=== PATIENT | female | born 1990 | race African-American/Black ===

== ENCOUNTER 2018-01-07 19:44 | Emergency (ER) | payer OTHER ==
[2018-01-07] MEDS ORDERED: ASPIRIN 81 MG CHEWABLE TABLETS PO ONE (19:50)
--- NOTE | 2018-01-07 19:53 | PDOC ---
Rapid Medical Evaluation Chief Complaint: Chest Pain Time Seen by Provider: 01/07/18 19:47 Medical Evaluation: Allergies Allergy/AdvReac Type Severity Reaction Status Date / Time No Known Allergies Allergy Verified 03/28/12 21:26 01/07/18 19:48 c/o chest pain 3 times on and off today. reports dizziness, denies SOB, recent travel + smoker PE: patient alert o x3. nontender chest, breath sounds clear A: chest pain P: labs EKG chest xray patient to the ER for further management. 01/07/18 19:51 01/07/18 19:53 Discharge Disposition - Diagnosis Chest pain at rest - Referrals - Patient Instructions - Post Discharge Activity
[2018-01-07 19:54] VITALS: BP 140/85; PULSE 95; TEMP 98.1; BMI 43.9
[2018-01-07 20:31] LABS: BASO % 0.8 % (0-2.0); HEMATOCRIT 36.2 % (32.4-45.2); HEMOGLOBIN 11.8 GM/dL (10.7-15.3); MCH 26.5 pg (25.7-33.7); MCHC 32.6 g/dl (32.0-36.0); MEAN CELL VOLUME 81.2 fl (80-96); MEAN PLT VOLUME 8.1 fl (7.5-11.1); MONO % 8.8 % (3.8-10.2); NEUT % 60.4 % (42.8-82.8); PLATELET COUNT 525 K/MM3 (134-434); RBC 4.46 M/mm3 (3.60-5.2); RDW 15.8 % (11.6-15.6); WHITE BLOOD COUNT 9.6 K/mm3 (4.0-10.0)
[2018-01-07 20:46] LABS: INR 0.96 (0.83-1.09); PROTHROMBIN TIME (PATIENT) 10.9 SEC (9.7-13.0)
[2018-01-07 20:54] LABS: ANION GAP 12 (8-16); BILIRUBIN,TOTAL 0.3 mg/dL (0.2-1.0); BLOOD UREA NITROGEN 13 mg/dL (7-18); CHLORIDE 109 mmol/L (98-107); CO2 25 mmol/L (21-32); CREATININE 0.7 mg/dL (0.55-1.02); GLUCOSE,RANDOM 94 mg/dL (74-106); MAGNESIUM 2.1 mg/dL (1.8-2.4); POTASSIUM 4.1 mmol/L (3.5-5.1); SGOT/AST 14 U/L (15-37); SGPT/ALT 26 U/L (12-78); SODIUM 146 mmol/L (136-145); TOT PROT 7.4 g/dl (6.4-8.2)
[2018-01-07 20:57] LABS: ALK PHOS 77 U/L (45-117)
[2018-01-07] MEDS ORDERED: ASPIRIN 81 MG CHEWABLE TABLETS ONE (20:58)
--- NOTE | 2018-01-07 21:32 | PDOC ---
History of Present Illness - General History Source: Patient <Jim Rosario - Last Filed: 01/07/18 21:50> - General History Source: Patient Exam Limitations: No Limitations - History of Present Illness Initial Comments: 01/07/18 21:53 The patient is a 27 year old female, with a significant past medical history of , who presents to the emergency department with, chest pain. She reports 3 episodes of intermittent chest pain with associated left arm pain and dizziness. Her episodes occurred at 9AM, 1PM, and 5PM. She reports taken Naprosyn, with relief to her first and second episodes. She denies any recent sick contacts. She denies recent fevers, chills, or headache. She denies recent nausea, vomit, diarrhea or constipation. She denies recent dysuria, frequency, urgency or hematuria. She denies recent shortness of breath. Allergies: NKA Past surgical history: None reported. Social history:Smoker (4 cigarettes per day). Denies EtOH use and recreational drug use. <Katelyn Rosales - Last Filed: 01/07/18 22:03> - General Chief Complaint: Pain Stated Complaint: CHEST PAIN Time Seen by Provider: 01/07/18 19:47 Past History - Past Medical History COPD: No Other medical history: Pt denies - Immunization History Immunization Up to Date: Yes - Suicide/Smoking/Psychosocial Hx Smoking Status: Yes Smoking History: Current every day smoker Have you smoked in the past 12 months: Yes Number of Cigarettes Smoked Daily: 4 Information on smoking cessation initiated: No Hx Alcohol Use: No Drug/Substance Use Hx: No Substance Use Type: None <Kina Rosarioan - Last Filed: 01/07/18 21:50> <Katelyn Rosales - Last Filed: 01/07/18 22:03> - Past Medical History Allergies/Adverse Reactions: Allergies Allergy/AdvReac Type Severity Reaction Status Date / Time No Known Allergies Allergy Verified 01/07/18 19:51 Home Medications: Ambulatory Orders Iron 1 tab PO DAILY 06/01/11 Capsule 1 cap PO DAILY 06/01/11 Iron 1 tab PO DAILY #0 06/03/11 Capsule 1 cap PO DAILY #0 06/03/11 Naproxen [Naprosyn] 500 mg PO BID #30 tablet 01/07/18 Review of Systems - Review of Systems Able to Perform ROS?: Yes Comments:: 01/07/18 21:53 CONSTITUTIONAL: Absent: fever, no chills, no fatigue EYES: Absent: visual changes ENT: Absent: ear pain, no sore throat CARDIOVASCULAR: Present: Chest pain. Left arm pain. Absent: no palpitations RESPIRATORY: Absent: cough, no SOB GI: Absent: abdominal pain, no nausea, no vomiting, no constipation, no diarrhea GENITOURINARY: Absent: dysuria, no frequency, no hematuria MUSKULOSKELETAL: Absent: back pain, no arthralgia, no myalgia SKIN: Absent: rash NEURO: Present: Dizziness. Absent: headache All Other Systems: Reviewed and Negative <Katelyn Rosales - Last Filed: 01/07/18 22:03> *Physical Exam - Vital Signs Last Vital Signs Temp Pulse Resp BP Pulse Ox 98.1 F 95 H 18 140/85 100 01/07/18 19:51 01/07/18 19:51 01/07/18 19:51 01/07/18 19:51 01/07/18 19:51 <Jim Rosario - Last Filed: 01/07/18 21:50> - Vital Signs Last Vital Signs Temp Pulse Resp BP Pulse Ox 98.1 F 95 H 18 140/85 100 01/07/18 19:51 01/07/18 19:51 01/07/18 19:51 01/07/18 19:51 01/07/18 19:51 - Physical Exam Comments: 01/07/18 21:53 +GENERAL: Morbidly obese. Well developed, well nourished. Awake and alert. No acute distress. HEENT: Normocephalic, atraumatic. PERRLA, EOMI. No conjunctival pallor. Sclera are non- icteric. Moist mucous membranes. Oropharynx is clear. NECK: Supple. Full ROM. No JVD. Carotid pulses 2+ and symmetric, without bruits. No thyromegaly. No lymphadenopathy. CARDIOVASCULAR: Regular rate and rhythm. No murmurs, rubs, or gallops. Distal pulses are 2+ and symmetric. PULMONARY: No evidence of respiratory distress. Lungs clear to auscultation bilaterally. No wheezing, rales or rhonchi. ABDOMINAL: Soft. Non-tender. Non-distended. No rebound or guarding. No organomegaly. Normoactive bowel sounds. MUSCULOSKELETAL Normal range of motion at all joints. No bony deformities or tenderness. No CVA tenderness. EXTREMITIES: No cyanosis. No clubbing. No edema. No calf tenderness. SKIN: Warm and dry. Normal capillary refill. No rashes. No jaundice. NEUROLOGICAL: Alert, awake, appropriate. Cranial nerves 2-12 intact. No deficits to light touch and temperature in face, upper extremities and lower extremities. No motor deficits in the in face, upper extremities and lower extremities. Normoreflexic in the upper and lower extremities. Normal speech. Toes are down- going bilaterally. Gait is normal without ataxia. PSYCHIATRIC: Cooperative. Good eye contact. Appropriate mood and affect. <Katelyn Rosales - Last Filed: 01/07/18 22:03> Heart Score/ECG Review #1 01/07/18 22:03 EKG performed at: 07 Jan 2018 at 21:21:23 Vent Rate 87 bpm VT interval 154 ms QRS duration 72 ms QT/QTc 396/476 ms P-R-T axes 24 30 24 Normal sinus rhythm Normal ECG <Katelyn Rosales - Last Filed: 01/07/18 22:03> ED Treatment Course - LABORATORY CBC & Chemistry Diagram: 01/07/18 20:20 01/07/18 20:20 - ADDITIONAL ORDERS Additional order review: Laboratory Results 01/07/18 01/07/18 01/07/18 20:20 20:20 20:20 PT with INR INR D-Dimer 305 Sodium 146 H Potassium 4.1 Chloride 109 H Carbon Dioxide 25 Anion Gap 12 BUN 13 Creatinine 0.7 Creat Clearance w eGFR > 60 Random Glucose 94 Calcium 9.0 Magnesium 2.1 Total Bilirubin 0.3 AST 14 L ALT 26 Alkaline Phosphatase 77 Creatine Kinase 213 H Troponin I < 0.02 Total Protein 7.4 Albumin 4.0 Serum , Qual Negative 01/07/18 20:20 PT with INR 10.90 INR 0.96 D-Dimer Sodium Potassium Chloride Carbon Dioxide Anion Gap BUN Creatinine Creat Clearance w eGFR Random Glucose Calcium Magnesium Total Bilirubin AST ALT Alkaline Phosphatase Creatine Kinase Troponin I Total Protein Albumin Serum , Qual 01/07/18 20:20 RBC 4.46 MCV 81.2 MCHC 32.6 RDW 15.8 H MPV 8.1 Neutrophils % 60.4 D Lymphocytes % 27.0 D Monocytes % 8.8 Eosinophils % 3.0 Basophils % 0.8 D - Medications Given in the ED: ED Medications Discontinued Medications Generic Name Dose Route Start Last Admin Trade Name Valerioq PRN Reason Stop Dose Admin Aspirin 162 mg 01/07/18 19:50 01/07/18 20:15 Asa - PO 01/07/18 19:51 162 mg ONCE ONE Administration <Jim Rosario - Last Filed: 01/07/18 21:50> - LABORATORY CBC & Chemistry Diagram: 01/07/18 20:20 01/07/18 20:20 - ADDITIONAL ORDERS Additional order review: Laboratory Results 01/07/18 01/07/18 01/07/18 20:20 20:20 20:20 PT with INR INR D-Dimer 305 Sodium 146 H Potassium 4.1 Chloride 109 H Carbon Dioxide 25 Anion Gap 12 BUN 13 Creatinine 0.7 Creat Clearance w eGFR > 60 Random Glucose 94 Calcium 9.0 Magnesium 2.1 Total Bilirubin 0.3 AST 14 L ALT 26 Alkaline Phosphatase 77 Creatine Kinase 213 H Creatine Kinase Index 0.8 CK-MB (CK-2) 1.75 Troponin I < 0.02 Total Protein 7.4 Albumin 4.0 Serum , Qual Negative 01/07/18 20:20 PT with INR 10.90 INR 0.96 D-Dimer Sodium Potassium Chloride Carbon Dioxide Anion Gap BUN Creatinine Creat Clearance w eGFR Random Glucose Calcium Magnesium Total Bilirubin AST ALT Alkaline Phosphatase Creatine Kinase Creatine Kinase Index CK-MB (CK-2) Troponin I Total Protein Albumin Serum , Qual 01/07/18 20:20 RBC 4.46 MCV 81.2 MCHC 32.6 RDW 15.8 H MPV 8.1 Neutrophils % 60.4 D Lymphocytes % 27.0 D Monocytes % 8.8 Eosinophils % 3.0 Basophils % 0.8 D - Medications Given in the ED: ED Medications Discontinued Medications Generic Name Dose Route Start Last Admin Trade Name Valerioq PRN Reason Stop Dose Admin Aspirin 162 mg 01/07/18 19:50 01/07/18 20:15 Asa - PO 01/07/18 19:51 162 mg ONCE ONE Administration <Katelyn Rosales - Last Filed: 01/07/18 22:03> Medical Decision Making - Medical Decision Making 01/07/18 21:44 Dr. Rosario: The scribe's documentation has been prepared under my direction and personally reviewed by me in its entirery. I confirm that the note above accurately reflects all work, treatment, procedures, and medical decision making performed by me. <Jim Rosario - Last Filed: 01/07/18 21:50> *DC/Admit/Observation/Transfer - Discharge Dispostion Decision to Admit order: No <Jim Rosario - Last Filed: 01/07/18 21:50> - Attestations Scribe Attestion: 01/07/18 21:54 Documentation prepared by Katelyn Rosales, acting as medical device sales for Jim Rosario DO. <Katelyn Rosales - Last Filed: 01/07/18 22:03> Diagnosis at time of Disposition: Chest pain at rest - Discharge Dispostion Disposition: HOME Condition at time of disposition: Stable - Prescriptions Prescriptions: Naproxen [Naprosyn] 500 mg PO BID #30 tablet - Referrals Referrals: Gary Anguiano MD [Staff Physician] - Tomas Magallanes MD [Staff Physician] - - Patient Instructions Printed Discharge Instructions: DI for Chest Pain Additional Instructions: please follow-up with the doctor referred in the ER. Take medication as directed. Return if any problems - Post Discharge Activity Forms/Work/School Notes: Back to Work
--- NOTE | 2018-01-08 15:46 | EKG ---
Test Reason : Blood Pressure : / mmHG Vent. Rate : 087 BPM Atrial Rate : 087 BPM P-R Int : 154 ms QRS Dur : 072 ms QT Int : 396 ms P-R-T Axes : 024 030 024 degrees QTc Int : 476 ms NORMAL SINUS RHYTHM NORMAL ECG NO PREVIOUS ECGS AVAILABLE Confirmed by HOMA FRAGA MD ([id number]) on 01/08/2018 3:46:09 PM Referred By: Confirmed By:HOMA FRAGA MD
== END 2018-01-07 22:15 | disposition home or self-care (01) ==
LOC: JER 19:44
DX: R07.9 Chest pain, unspecified (principal); F17.210 Nicotine dependence, cigarettes, uncomplicated
CPT/HCPCS: 36415; 71046-TC-FY; 80053; 82550; 82553; 83735; 84484; 84703; 85025; 85379; 85610; 93005; 93010; 99282-25

== ENCOUNTER 2018-05-16 11:59 | Emergency (ER) | payer OTHER ==
[2018-05-16 12:21] VITALS: BP 126/75; PULSE 93; TEMP 98.7; BMI 47.9
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
[2018-05-16] MEDS ORDERED: IBUPROFEN 600 MG TABLET (FP) PO ONE (13:30)
== END 2018-05-16 13:37 | disposition home or self-care (01) ==
LOC: JER 11:59
DX: L73.2 Hidradenitis suppurativa (principal); M25.561 Pain in right knee; E66.01 Morbid (severe) obesity due to excess calories; Z68.42 Body mass index [BMI] 45.0-49.9, adult; F17.210 Nicotine dependence, cigarettes, uncomplicated
CPT/HCPCS: 73562-TC-RT-FY; 84703; 99282-25

== ENCOUNTER 2019-07-01 15:40 | Emergency (ER) | payer OTHER ==
[2019-07-01] MEDS ORDERED: SODIUM CHLORIDE 1,000 ML IV STA (16:02)
[2019-07-01 16:03] VITALS: BMI 54.8
--- NOTE | 2019-07-01 16:03 | PDOC ---
Rapid Medical Evaluation Time Seen by Provider: 07/01/19 15:59 Medical Evaluation: Allergies Allergy/AdvReac Type Severity Reaction Status Date / Time No Known Allergies Allergy Verified 05/16/18 12:15 07/01/19 15:59 CC: and bleeding x 6 days. Pt is a 28 y/o female who presents to the ED with vaginal bleeding in . She states she is intermittently passing clots. She admits to having abdominal pain. LMP 2018. Brief exam: diffuse lower abdominal tenderness to palpation Orders: labs, US, fluids To ED for further evaluation Discharge Disposition - Diagnosis Vaginal bleeding - Referrals - Patient Instructions - Post Discharge Activity
[2019-07-01 16:33] LABS: BASO % 0.5 % (0-2.0); EOS % 1.2 % (0-4.5); HEMATOCRIT 35.3 % (32.4-45.2); HEMOGLOBIN 11.6 GM/dL (10.7-15.3); LYMPH % 25.9 % (8-40); MCH 27.1 pg (25.7-33.7); MCHC 32.8 g/dl (32.0-36.0); MEAN CELL VOLUME 82.6 fl (80-96); MONO % 7.9 % (3.8-10.2); NEUT % 64.5 % (42.8-82.8); PLATELET COUNT 458 K/MM3 (134-434); RBC 4.28 M/mm3 (3.60-5.2); RDW 15.5 % (11.6-15.6); WHITE BLOOD COUNT 9.7 K/mm3 (4.0-10.0)
[2019-07-01 16:42] LABS: EPI CELLS 8.4 /HPF (0-5/HPF); HYALINE CASTS 7 /lpf (0-8); PH,URINE 5.5 (5.0-8.0); URINE APPEARANCE CLEAR; URINE BACTERIA 69.2 /hpf (NEGATIVE); URINE BILIRUBIN NEGATIVE (NEGATIVE); URINE COLOR DK YELLOW; URINE GLUCOSE (UA) NEGATIVE (NEGATIVE); URINE KETONE TRACE (NEGATIVE); URINE LEUK ESTERASE NEGATIVE (NEGATIVE); URINE NITRITE NEGATIVE (NEGATIVE); URINE PROTEIN TRACE (NEGATIVE); URINE RBC 5 /hpf (0-4); URINE WBC 4 /hpf (0-5)
[2019-07-01 17:20] LABS: ALBUMIN 3.7 g/dl (3.4-5.0); BILIRUBIN,TOTAL 0.3 mg/dL (0.2-1); BLOOD UREA NITROGEN 7.2 mg/dL (7-18); CALCIUM 9.1 mg/dL (8.5-10.1); CREATININE 0.8 mg/dL (0.55-1.3); POTASSIUM 3.7 mmol/L (3.5-5.1); TOT PROT 7.3 g/dl (6.4-8.2)
--- NOTE | 2019-07-01 18:23 | PDOC ---
History of Present Illness - General Chief Complaint: Vaginal Bleeding Stated Complaint: VAGINAL BLEEDING Time Seen by Provider: 07/01/19 15:59 History Source: Patient, Old Records Exam Limitations: No Limitations - History of Present Illness Initial Comments: 07/01/19 18:20 HISTORY OF PRESENT ILLNESS: 28-year-old otherwise healthy woman who is 4 para 1 with a last menstrual period of 05/23/2019 presents emergency department for evaluation of vaginal spotting for the past 6 days. Patient reports she is 5-6 pads over the first 2 days but is only had some spotting since then. Bleeding is accompanied by some lower abdominal pain which radiates to her lower back. Pain is intermittent and cramping and is currently 3/10 with intermittently as high as 8/10. Patient reports she has had 2+ home test on Friday. She denies any nausea, vomiting, dysuria, hematuria, vaginal discharge, flank pain, constipation or diarrhea. No recent travel or sick contacts. PAST MEDICAL HISTORY: 4 para 1 SURGICAL HISTORY: LEEP ALLERGIES: No known drug allergies REVIEW OF SYSTEMS General/Constitutional: Denies fever or chills. Denies weakness, weight change. HEENT: Denies change in vision. Denies ear pain or discharge. Denies sore throat. Cardiovascular: Denies chest pain or shortness of breath. Respiratory: Denies cough, wheezing, or hemoptysis. Gastrointestinal: See HPI Genitourinary: See HPI Musculoskeletal: Denies joint or muscle swelling or pain. Denies neck or back pain. Skin and breasts: Denies rash or easy bruising. Neurologic: Denies headache, vertigo, loss of consciousness, or loss of sensation. Psychiatric: Denies depression or anxiety. Endocrine: Denies increased thirst. Denies abnormal weight change. Hematologic/Lymphatic: Denies anemia, easy bleeding, or history of blood clots. Allergic/Immunologic: Denies hives or skin allergy. Denies latex allergy. PHYSICAL EXAM General Appearance: Well-appearing, appropriately dressed. No apparent distress , no intoxication. HEENT: EOMI, PERRLA, normal ENT inspection, normal voice, TMs normal, pharynx normal. No conjunctival pallor. No photophobia, scleral icterus. Neck: Supple. Trachea midline. No tenderness, rigidity, carotid bruit, stridor , lymphadenopathy, or thyromegaly. Respiratory/Chest: Lungs CTAB. No shortness of breath, chest tenderness, respiratory distress, accessory muscle use. No crackles, rales, rhonchi, stridor , wheezing, dullness Cardiovascular: RRR. S1, S2. No JVD, murmur, bradycardia, tachycardia. Vascular Pulses: Dorsalis-Pedis (R): 2+, Dorsalis-Pedis (L): 2+ Gastrointestinal/Abdominal: Normal bowel sounds. Abdomen soft, non-distended. No organomegaly, pulsatile mass, guarding, hernia, hepatomegaly, splenomegaly. Lower abdominal tenderness and guarding present. Lymphatic: No adenopathy, tenderness. Musculoskeletal/Extremities: Normal inspection. FROM of all extremities, normal capillary refill. Pelvis Stable. No CVA tenderness. No tenderness to extremities, pedal edema, swelling, erythema or deformity. Integumentary: Appropriate color, dry, warm. No cyanosis, erythema, jaundice or rash Neurologic: production internship II-XII intact. Fully oriented, alert. Appropriate mood/affect. Motor strength 5/5. No appreciable EOM palsy, facial droop or sensory deficit. Past History - Past Medical History Allergies/Adverse Reactions: Allergies Allergy/AdvReac Type Severity Reaction Status Date / Time No Known Allergies Allergy Verified 07/01/19 15:59 Home Medications: Ambulatory Orders NK [No Known Home Medication] 05/16/18 COPD: No - Immunization History Immunization Up to Date: Yes - Psycho Social/Smoking Cessation Hx Smoking Status: Yes Smoking History: Never smoked Have you smoked in the past 12 months: Yes Number of Cigarettes Smoked Daily: 4 Hx Alcohol Use: No Drug/Substance Use Hx: No Substance Use Type: None *Physical Exam - Vital Signs Last Vital Signs Temp Pulse Resp BP Pulse Ox 98.4 F 103 H 18 162/95 99 07/01/19 16:01 07/01/19 16:01 07/01/19 16:01 07/01/19 16:07/01/19 16:01 - Physical Exam Female Pelvic Exam: positive: normal external exam, cervical os closed, normal adnexa. negative: CMT, discharge, adnexal tenderness, vaginal bleeding ED Treatment Course - LABORATORY CBC & Chemistry Diagram: 07/01/19 16:16 07/01/19 16:16 - ADDITIONAL ORDERS Additional order review: Laboratory Results 07/01/19 07/01/1920 16:16 16:16 16:16 Sodium 140 Potassium 3.7 Chloride 108 H Carbon Dioxide 23 Anion Gap 8 BUN 7.2 Creatinine 0.8 Est GFR (CKD-EPI)AfAm 117.93 Est GFR (CKD-EPI)NonAf 101.75 Random Glucose 101 Calcium 9.1 Total Bilirubin 0.3 AST 32 ALT 44 Alkaline Phosphatase 76 Total Protein 7.3 Albumin 3.7 Beta HCG, Quant 1421.5 Urine Color Dk yellow Urine Appearance Clear Urine pH 5.5 Ur Specific [place] 1.029 Urine Protein Trace Urine Glucose (UA) Negative Urine Ketones Trace H Urine Blood 2+ H Urine Nitrite Negative Urine Bilirubin Negative Urine Urobilinogen 1.0 Ur Leukocyte Esterase Negative Urine WBC (Auto) 4 Urine RBC (Auto) 5 Urine Casts (Auto) 7 U Epithel Cells (Auto) 8.4 Urine Bacteria (Auto) 69.2 Blood Type A POSITIVE Antibody Screen Negative 07/01/19 16:16 RBC 4.28 MCV 82.6 MCHC 32.8 RDW 15.5 MPV 8.0 Neutrophils % 64.5 Lymphocytes % 25.9 Monocytes % 7.9 Eosinophils % 1.2 Basophils % 0.5 - Medications Given in the ED: ED Medications Discontinued Medications Generic Name Dose Route Start Last Admin Trade Name Freq PRN Reason Stop Dose Admin Sodium Chloride 1,000 mls @ 1,000 mls/hr 07/01/19 16:02 07/01/19 17:06 Normal Saline - IV 07/01/19 17:01 1,000 mls/hr ASDIR STA Administration Medical Decision Making - Medical Decision Making 07/01/19 18:22 A/P: 28-year-old woman with lower abdominal pain and vaginal bleeding in early Differential diagnosis includes but is not limited to-ectopic , threatened , vaginal bleeding in early , infection Labs per E Ultrasound per [facility] Reassess 07/01/19 19:43 Ultrasound is read by Dr. So: No intrauterine gestation or gestational sac is identified-? Early , ectopic or recent miscarriage. 1.7 cm soft tissue focus is seen within the endometrial canal possibly representing a protruding submucosal leiomyoma or polypoid lesion. Nonemergent MRI may be performed. 3 cm intramural lesion is seen within the uterine body ventrally suggestive of a leiomyoma. No gross adnexal pathology is identified. There is no free intraperitoneal fluid within the visualized lower pelvis. 1.7 cm right ovarian cyst is noted. The left ovary appears unremarkable. No Doppler evidence of ovarian torsion, sensitivity 70%. 07/01/19 19:45 Laboratory Tests 07/01/19 07/01/19 07/01/19 16:16 16:16 16:16 WBC 9.7 RBC 4.28 Hgb 11.6 Hct 35.3 MCV 82.6 MCH 27.1 MCHC 32.8 RDW 15.5 Plt Count 458 H MPV 8.0 Absolute Neuts (auto) 6.3 Neutrophils % 64.5 Lymphocytes % 25.9 Monocytes % 7.9 Eosinophils % 1.2 Basophils % 0.5 Nucleated RBC % 0 Sodium Potassium Chloride Carbon Dioxide Anion Gap BUN Creatinine Est GFR (CKD-EPI)AfAm Est GFR (CKD-EPI)NonAf Random Glucose Calcium Total Bilirubin AST ALT Alkaline Phosphatase Total Protein Albumin Beta HCG, Quant Urine Color Dk yellow Urine Appearance Clear Urine pH 5.5 Ur Specific [place] 1.029 Urine Protein Trace Urine Glucose (UA) Negative Urine Ketones Trace H Urine Blood 2+ H Urine Nitrite Negative Urine Bilirubin Negative Urine Urobilinogen 1.0 Ur Leukocyte Esterase Negative Urine WBC (Auto) 4 Urine RBC (Auto) 5 Urine Casts (Auto) 7 U Epithel Cells (Auto) 8.4 Urine Bacteria (Auto) 69.2 Blood Type A POSITIVE Antibody Screen Negative 07/01/19 16:16 WBC RBC Hgb Hct MCV MCH MCHC RDW Plt Count MPV Absolute Neuts (auto) Neutrophils % Lymphocytes % Monocytes % Eosinophils % Basophils % Nucleated RBC % Sodium 140 Potassium 3.7 Chloride 108 H Carbon Dioxide 23 Anion Gap 8 BUN 7.2 Creatinine 0.8 Est GFR (CKD-EPI)AfAm 117.93 Est GFR (CKD-EPI)NonAf 101.75 Random Glucose 101 Calcium 9.1 Total Bilirubin 0.3 AST 32 ALT 44 Alkaline Phosphatase 76 Total Protein 7.3 Albumin 3.7 Beta HCG, Quant 1421.5 Urine Color Urine Appearance Urine pH Ur Specific [place] Urine Protein Urine Glucose (UA) Urine Ketones Urine Blood Urine Nitrite Urine Bilirubin Urine Urobilinogen Ur Leukocyte Esterase Urine WBC (Auto) Urine RBC (Auto) Urine Casts (Auto) U Epithel Cells (Auto) Urine Bacteria (Auto) Blood Type Antibody Screen Blood type is a positive. Beta-hCG 1421. Urinalysis not suggestive of infection. As cervical loss is closed there is no pooling of blood if it is safe to discharge home. Patient has been instructed to return to the emergency department in 2 days for repeat beta testing and ultrasound. I discussed the physical exam findings, ancillary test results and final diagnoses with the patient. I answered all of the patient's questions. The patient was satisfied with the care received and felt comfortable with the discharge plan and treatment plan. The patient will call their primary care physician within 24 hours to arrange follow-up and will return to the Emergency Department with any new, persistent or worsening symptoms. Discharge - Discharge Information Problems reviewed: Yes Clinical Impression/Diagnosis: Vaginal bleeding Condition: Stable Disposition: HOME - Admission No - Follow up/Referral Referrals: Sweta Funes MD [Primary Care Provider] - - Patient Discharge Instructions Additional Instructions: Take your vitamins. Keep well-hydrated. Avoid tobacco and alcohol as well as illegal drugs. Make an appointment with your [facility] [facility] [facility] for reevaluation. Return to the emergency department in 2 days for repeat blood and's ultrasound. Return to the emergency department immediately for severe pain, vaginal bleeding that requires more than 2 pads per hour or for any other symptoms. Thank you very much for choosing us to provide your emergent health care needs. - Post Discharge Activity
[2019-07-01 21:48] VITALS: BP 126/78; PULSE 78; TEMP 98.5
== END 2019-07-01 20:45 | disposition home or self-care (01) ==
LOC: JER 15:40
PROC: 3E0337Z Introduction of Electrolytic and Water Balance Substance into Peripheral Vein, Percutaneous Approach (ICD-10-PCS; principal; 2019-07-01)
DX: O26.891 Other specified pregnancy related conditions, first trimester (principal); O20.8 Other hemorrhage in early pregnancy; O34.11 Maternal care for benign tumor of corpus uteri, first trimester; D25.9 Leiomyoma of uterus, unspecified; O34.80 Maternal care for other abnormalities of pelvic organs, unspecified trimester; N83.201 Unspecified ovarian cyst, right side; Z3A.01 Less than 8 weeks gestation of pregnancy
CPT/HCPCS: 36415; 76817-TC; 80053; 81003; 84702; 85025; 86850; 86900; 86901; 99283-25; J7030

== ENCOUNTER 2019-07-04 17:28 | Emergency (ER) | payer OTHER ==
[2019-07-04 17:34] VITALS: BP 161/95; PULSE 101; TEMP 98.7; BMI 55.1
--- NOTE | 2019-07-04 17:42 | PDOC ---
History of Present Illness - General Chief Complaint[place] [facility] [place] Complaint: TEST Time Seen by Provider: 07/04/19 17:36 History Source: Patient - History of Present Illness Timing/Duration: reports: intermittent Past History - Past Medical History Allergies/Adverse Reactions: Allergies Allergy/AdvReac Type Severity Reaction Status Date / Time No Known Allergies Allergy Verified 07/04/19 17:34 Home Medications: Ambulatory Orders NK [No Known Home Medication] 05/16/18 COPD: No Other medical history: back problems - Reproductive History (#): 4 Para: 1 Spontaneous : 3 - Immunization History Immunization Up to Date: Yes - Psycho Social/Smoking Cessation Hx Smoking Status: Yes Smoking History: Current every day smoker Have you smoked in the past 12 months: Yes Number of Cigarettes Smoked Daily: 4 Information on smoking cessation initiated: No Hx Alcohol Use: No Drug/Substance Use Hx: No Substance Use Type: None Review of Systems - Review of Systems Constitutional: No: Chills, Fever ABD/GI: No: Nausea, Vomiting, Abdominal cramping : No: Dysuria, Discharge, Flank Pain, Hematuria *Physical Exam - Vital Signs Last Vital Signs Temp Pulse Resp BP Pulse Ox 98.7 F 101 H 18 161/95 100 07/04/19 17:30 07/04/19 17:30 07/04/19 17:30 07/04/19 17:30 07/04/19 17:30 - Physical Exam General Appearance: Yes: Appropriately Dressed. No: Apparent Distress HEENT: positive: Normal Voice Neck: positive: Supple Respiratory/Chest: negative: Respiratory Distress Gastrointestinal/Abdominal: positive: Soft. negative: Tender Integumentary: positive: Dry, Warm Neurologic: positive: Fully Oriented, Alert, Normal Mood/Affect Medical Decision Making - Medical Decision Making 07/04/19 17:39 28 yo F, (s/p 2 spon ABs), LMP 05/23/19, here for repeat beta-hCG. Was seen in ER 4 days ago for vaginal bleeding. Os found to be closed w/ no pooling of blood in vault on prior pelvic exam per records. Beta was 1421 with no evidence of on ultrasound. No evidence of UTI on UA and Rh+. Bleeding is intermittent and mild per pt. No abdominal pain, dysuria, nausea, vomiting, fever or chills see exam 1st trimester bleed w/ beta>1k and no e/o preg on initial US 4 days ago in ED, here for rpt assessment Intermittent mild vag bleed continues, no abd pain, n/v Well foreign and stable w/ benign abd -rpt beta and US 07/04/19 20:39 Beta 671 today, decreased from more than half compared to prior visit. Repeat ultrasound today redemonstrates possible endometrial polyp versus fibroids. Also seen is anterior uterine myoma and nabothian cyst. Results discussed with patient was told findings more consistent with spontaneous AB in progress. Told to follow-up follow-up with [facility]ER after today. Reasons to return to ER discussed with patient Discharge - Discharge Information Problems reviewed: Yes Clinical Impression/Diagnosis: Spontaneous Condition: Stable Disposition: HOME - Follow up/Referral Referrals: Michael Funes [Primary Care Provider] - - Patient Discharge Instructions Patient Printed Discharge Instructions: DI for Miscarriage Additional Instructions: Data is 671 today, compared to over 1400 on your prior visit Your ultrasound today shows no evidence of . There is a possible polyp versus fibroid in your uterus. After today you will need to follow-up with your OB to trend beta. If you develop abdominal pain or worsening of symptoms, return to the ER - Post Discharge Activity
== END 2019-07-04 20:42 | disposition home or self-care (01) ==
LOC: JERFT 17:28
DX: O26.891 Other specified pregnancy related conditions, first trimester (principal); O03.9 Complete or unspecified spontaneous abortion without complication; Z3A.01 Less than 8 weeks gestation of pregnancy; F17.210 Nicotine dependence, cigarettes, uncomplicated
CPT/HCPCS: 36415; 76817-TC; 84702; 99281-25

== ENCOUNTER 2023-03-02 08:13 | Inpatient (IN) | payer OTHER ==
[2023-03-02 08:36] VITALS: BMI 58.5
[2023-03-02 09:26] LABS: VENOUS BASE EXCESS -2.9 mmol/L (-2-2); VENOUS O2 SATURATION 53.5 % (70-80); VENOUS PCO2 38.9 mmHg (38-52)
[2023-03-02 09:37] LABS: POTASSIUM 3.9 mmol/L (3.5-5.1)
[2023-03-02 09:40] LABS: ALBUMIN 3.6 g/dl (3.4-5.0); CALCIUM 8.2 mg/dL (8.5-10.1); MAGNESIUM 1.9 mg/dL (1.8-2.4)
[2023-03-02 09:43] LABS: CREATININE 0.6 mg/dL (0.55-1.3)
[2023-03-02 09:45] LABS: BILIRUBIN,TOTAL 1.8 mg/dL (0.2-1); TOT PROT 6.7 g/dl (6.4-8.2)
[2023-03-02 09:48] LABS: N-TERMINAL BNP 164.4 pg/ml (5-125)
[2023-03-02 09:52] LABS: INR 1.19 (0.83-1.09); PROTHROMBIN TIME (PATIENT) 13.8 SEC (9.7-13.0)
[2023-03-02 09:55] LABS: ACTIVATED PTT 23.5 SECONDS (25.2-36.5)
[2023-03-02 10:05] LABS: HEMATOCRIT 18.7 % (32.4-45.2); MCH 34.3 pg (25.7-33.7); MCHC 32.1 g/dl (32.0-36.0); MEAN CELL VOLUME 106.7 fl (80-96); MEAN PLT VOLUME 6.6 fl (7.5-11.1); PLATELET COUNT 380 10^3/uL (134-434); RBC 1.75 M/mm3 (3.60-5.2); RDW 20.2 % (11.6-15.6); WHITE BLOOD COUNT 18.9 K/mm3 (4.0-10.0)
[2023-03-02 10:36] LABS: ANISOCYTOSIS 3+; CORRECTED WBC 15.37 K/mm3; MACROCYTOSIS 0; TARGET CELLS 2+
[2023-03-02 11:07] LABS: EPI CELLS >36 /uL (0-25.1); HYALINE CASTS 0 /uL (0-3.1); PH,URINE 5.5 (5.0-8.0); URINE APPEARANCE CLEAR; URINE BACTERIA 1081 /uL (0-1359); URINE BILIRUBIN NEGATIVE (NEGATIVE); URINE COLOR ORANGE; URINE GLUCOSE (UA) NEGATIVE (NEGATIVE); URINE KETONE NEGATIVE (NEGATIVE); URINE LEUK ESTERASE NEGATIVE (NEGATIVE); URINE NITRITE NEGATIVE (NEGATIVE); URINE PROTEIN NEGATIVE (NEGATIVE); URINE RBC 6 /uL (0-23.9); URINE UROBILINOGEN 0.2 mg/dL (0.2-1.0); URINE WBC 14 /uL (0-25.8)
[2023-03-02] MEDS ORDERED: ACETAMINOPHEN INJECTION 100 ML IVPB ONE (13:08)
[2023-03-02] MEDS ORDERED: ACETAMINOPHEN 1000 MG/100 ML BAG IVPB ONE (13:11)
[2023-03-03 12:27] LABS: POTASSIUM 3.9 mmol/L (3.5-5.1)
[2023-03-03 12:31] LABS: CALCIUM 8.5 mg/dL (8.5-10.1)
[2023-03-03 12:32] LABS: BLOOD UREA NITROGEN 7.7 mg/dL (7-18)
[2023-03-03 12:33] LABS: BILIRUBIN,DIRECT 0.5 mg/dL (0.0-0.2)
[2023-03-03 12:35] LABS: CREATININE 0.6 mg/dL (0.55-1.3)
[2023-03-03 12:36] LABS: HEMATOCRIT 24.5 % (32.4-45.2); HEMOGLOBIN 8.2 GM/dL (10.7-15.3); MCH 33.1 pg (25.7-33.7); MCHC 33.5 g/dl (32.0-36.0); MEAN CELL VOLUME 98.9 fl (80-96); MEAN PLT VOLUME 6.6 fl (7.5-11.1); PLATELET COUNT 326 10^3/uL (134-434); RBC 2.47 M/mm3 (3.60-5.2)
[2023-03-03 12:37] LABS: WHITE BLOOD COUNT 18.1 K/mm3 (4.0-10.0)
[2023-03-03 12:55] LABS: ANISOCYTOSIS 2+; CORRECTED WBC 13.82 K/mm3; MACROCYTOSIS 1+; OVALOCYTE 1+
[2023-03-03] MEDS: methylPREDNISolone NA SUCC 125 MG/2 ML VIAL IVPUSH SCH (17:58)
[2023-03-04 08:07] LABS: CMV IgM < 30.0 AU/mL (0.0-29.9)
[2023-03-04] MEDS: methylPREDNISolone NA SUCC 125 MG/2 ML VIAL IVPUSH SCH (09:51)
[2023-03-04 10:01] LABS: HEMATOCRIT 24.9 % (32.4-45.2); HEMOGLOBIN 8.4 GM/dL (10.7-15.3); MCH 33.7 pg (25.7-33.7); MCHC 33.9 g/dl (32.0-36.0); MEAN CELL VOLUME 99.5 fl (80-96); MEAN PLT VOLUME 6.6 fl (7.5-11.1); PLATELET COUNT 331 10^3/uL (134-434)
[2023-03-04 10:06] LABS: WHITE BLOOD COUNT 20.2 K/mm3 (4.0-10.0)
[2023-03-04 11:21] LABS: POTASSIUM 3.8 mmol/L (3.5-5.1)
[2023-03-04 14:23] LABS: CALCIUM 8.7 mg/dL (8.5-10.1)
[2023-03-04 14:24] LABS: BLOOD UREA NITROGEN 8.2 mg/dL (7-18); MAGNESIUM 2.3 mg/dL (1.8-2.4)
[2023-03-04 14:25] LABS: ALBUMIN 3.8 g/dl (3.4-5.0); CREATININE 0.6 mg/dL (0.55-1.3)
[2023-03-04 14:26] LABS: PHOSPHOROUS 2.3 mg/dL (2.5-4.9)
[2023-03-04 14:28] LABS: TOT PROT 7.3 g/dl (6.4-8.2)
[2023-03-04 17:08] LABS: PARV B19 IGG 0.5 index (0.0-0.8); PARV B19 IGM 0.2 index (0.0-0.8)
[2023-03-05 10:20] LABS: HEMOGLOBIN 8.6 GM/dL (10.7-15.3); MCH 34.3 pg (25.7-33.7); MCHC 33.2 g/dl (32.0-36.0); MEAN CELL VOLUME 103.1 fl (80-96); MEAN PLT VOLUME 6.8 fl (7.5-11.1); PLATELET COUNT 323 10^3/uL (134-434); RBC 2.52 M/mm3 (3.60-5.2); RDW 27.1 % (11.6-15.6); RETICULOCYTES 18.06 % (0.5-1.5); WHITE BLOOD COUNT 23.6 K/mm3 (4.0-10.0)
[2023-03-05 10:41] LABS: POTASSIUM 3.1 mmol/L (3.5-5.1)
[2023-03-05 10:58] LABS: ALBUMIN 3.6 g/dl (3.4-5.0); BLOOD UREA NITROGEN 11.6 mg/dL (7-18); MAGNESIUM 2.1 mg/dL (1.8-2.4)
[2023-03-05 11:01] LABS: CALCIUM 8.6 mg/dL (8.5-10.1); CREATININE 0.6 mg/dL (0.55-1.3); PHOSPHOROUS 2.6 mg/dL (2.5-4.9)
[2023-03-05 11:02] LABS: BILIRUBIN,TOTAL 1.9 mg/dL (0.2-1)
[2023-03-05] MEDS ORDERED: POTASSIUM CHLORIDE ORAL LIQUID 20 MEQ/15 ML PO ONE (13:27)
[2023-03-05] MEDS ORDERED: POTASSIUM CHLORIDE TABS 20 MEQ TABLET.ER (FP) PO ONE (13:28)
[2023-03-05] MEDS: POLYETHYLENE GLYCOL (HEALTHYLAX) 3350 17 GM PACKET PO SCH (18:51)
[2023-03-06] MEDS ORDERED: ACETAMINOPHEN 1000 MG/100 ML BAG IVPB ONE (04:45)
[2023-03-06] MEDS ORDERED: ACETAMINOPHEN 325 MG TABLET (FP) PO ONE (04:48)
[2023-03-06] MEDS: POLYETHYLENE GLYCOL (HEALTHYLAX) 3350 17 GM PACKET PO SCH (09:11)
[2023-03-06 10:49] LABS: HEMATOCRIT 23.4 % (32.4-45.2); HEMOGLOBIN 8.1 GM/dL (10.7-15.3); MCH 34.9 pg (25.7-33.7); MCHC 34.5 g/dl (32.0-36.0); MEAN CELL VOLUME 101.3 fl (80-96); MEAN PLT VOLUME 6.6 fl (7.5-11.1); PLATELET COUNT 293 10^3/uL (134-434); RBC 2.31 M/mm3 (3.60-5.2); RDW 25.5 % (11.6-15.6); RETICULOCYTES 17.69 % (0.5-1.5); WHITE BLOOD COUNT 17.5 K/mm3 (4.0-10.0)
[2023-03-06 11:07] LABS: POTASSIUM 3.9 mmol/L (3.5-5.1)
[2023-03-06 11:13] LABS: ALBUMIN 3.5 g/dl (3.4-5.0); BLOOD UREA NITROGEN 11.1 mg/dL (7-18); MAGNESIUM 2.1 mg/dL (1.8-2.4)
[2023-03-06 11:15] LABS: CREATININE 0.6 mg/dL (0.55-1.3)
[2023-03-06 11:18] LABS: BILIRUBIN,TOTAL 2.8 mg/dL (0.2-1); TOT PROT 6.6 g/dl (6.4-8.2)
[2023-03-06 11:29] LABS: BILIRUBIN,DIRECT 0.6 mg/dL (0.0-0.2)
[2023-03-06] MEDS ORDERED: ACETAMINOPHEN 500 MG TABLET (FP) PO ONE (15:57)
[2023-03-06] MEDS: ACETAMINOPHEN 500 MG TABLET (FP) PO PRN (23:39)
[2023-03-07] MEDS: POLYETHYLENE GLYCOL (HEALTHYLAX) 3350 17 GM PACKET PO SCH (09:31)
[2023-03-07 11:29] LABS: HEMATOCRIT 22.5 % (32.4-45.2); HEMOGLOBIN 7.4 GM/dL (10.7-15.3); MCH 34.3 pg (25.7-33.7); MCHC 32.9 g/dl (32.0-36.0); MEAN CELL VOLUME 104.2 fl (80-96); MEAN PLT VOLUME 6.9 fl (7.5-11.1); PLATELET COUNT 253 10^3/uL (134-434); RBC 2.16 M/mm3 (3.60-5.2); RDW 23.5 % (11.6-15.6)
[2023-03-07 11:49] LABS: POTASSIUM 3.6 mmol/L (3.5-5.1)
[2023-03-07 12:22] LABS: BLOOD UREA NITROGEN 8.3 mg/dL (7-18)
[2023-03-07 12:25] LABS: CALCIUM 8.2 mg/dL (8.5-10.1)
[2023-03-07 12:26] LABS: ALBUMIN 3.5 g/dl (3.4-5.0); MAGNESIUM 2.3 mg/dL (1.8-2.4)
[2023-03-07 12:29] LABS: CREATININE 0.6 mg/dL (0.55-1.3); PHOSPHOROUS 3.1 mg/dL (2.5-4.9)
[2023-03-07 12:30] LABS: BILIRUBIN,TOTAL 2.6 mg/dL (0.2-1); TOT PROT 6.6 g/dl (6.4-8.2)
[2023-03-07 17:33] LABS: SICKLE CELL SCREEN NEGATIVE (NEGATIVE)
[2023-03-07 17:41] LABS: BILIRUBIN,DIRECT 0.6 mg/dL (0.0-0.2)
[2023-03-07 18:49] LABS: HIV INTERPRETATION NEGATIVE (NEGATIVE)
[2023-03-08] MEDS: POLYETHYLENE GLYCOL (HEALTHYLAX) 3350 17 GM PACKET PO SCH (09:00)
[2023-03-08 09:23] LABS: HEMATOCRIT 22.1 % (32.4-45.2); HEMOGLOBIN 7.5 GM/dL (10.7-15.3); MCH 34.9 pg (25.7-33.7); MCHC 34.1 g/dl (32.0-36.0); MEAN CELL VOLUME 102.4 fl (80-96); MEAN PLT VOLUME 7.1 fl (7.5-11.1); PLATELET COUNT 268 10^3/uL (134-434); RBC 2.16 M/mm3 (3.60-5.2); RDW 21.3 % (11.6-15.6); RETICULOCYTES 17.05 % (0.5-1.5); WHITE BLOOD COUNT 7.3 K/mm3 (4.0-10.0)
[2023-03-08 09:40] LABS: POTASSIUM 3.8 mmol/L (3.5-5.1)
[2023-03-08 09:46] LABS: ALBUMIN 3.5 g/dl (3.4-5.0); BLOOD UREA NITROGEN 8.8 mg/dL (7-18); CALCIUM 8.4 mg/dL (8.5-10.1)
[2023-03-08 09:47] LABS: MAGNESIUM 2.3 mg/dL (1.8-2.4)
[2023-03-08 09:48] LABS: CREATININE 0.6 mg/dL (0.55-1.3)
[2023-03-08 09:49] LABS: PHOSPHOROUS 3.4 mg/dL (2.5-4.9)
[2023-03-08 09:50] LABS: BILIRUBIN,DIRECT 0.5 mg/dL (0.0-0.2); TOT PROT 6.7 g/dl (6.4-8.2)
[2023-03-08 09:51] LABS: BILIRUBIN,TOTAL 1.8 mg/dL (0.2-1)
[2023-03-08] MEDS: ACETAMINOPHEN 500 MG TABLET (FP) PO PRN (16:22)
[2023-03-08 17:31] VITALS: BP 118/66; PULSE 95; RESP 16; TEMP 98.7
== END 2023-03-08 18:13 | disposition home or self-care (01) | DRG 660 ==
LOC: JER 08:13 → JERBED 15:58 → OBSVTOIN 17:19 → J6S 22:07
PROVIDERS: ADMIT Internal Medicine; ATTEND Internal Medicine
PROC: 30233N1 Transfusion of Nonautologous Red Blood Cells into Peripheral Vein, Percutaneous Approach (ICD-10-PCS; principal; 2023-03-02)
DX: D59.10 Autoimmune hemolytic anemia, unspecified (principal); E66.01 Morbid (severe) obesity due to excess calories; Z68.43 Body mass index [BMI] 50.0-59.9, adult; E87.6 Hypokalemia; I82.612 Acute embolism and thrombosis of superficial veins of left upper extremity; R50.9 Fever, unspecified
CPT/HCPCS: 0241U-QW; 36415; 36430; 71045-TC-FY; 71275-TC; 76830-TC; 80048; 80053; 81003; 82248; 82607; 82728; 82746; 82803; 83010; 83540; 83550; 83615; 83735; 83880; 84100; 84443; 84466; 84484; 84703; 85025; 85027; 85045; 85379; 85610; 85660; 85730; 86140; 86644; 86645; 86664; 86747; 86850; 86870; 86880; 86900; 86901; 86902; 86922; 87040; 87086; 87389; 87635; 87799; 88300-TC; 93005; 93010; 93971; 99285-25; G0378; P9038; P9058; Q9967

== ENCOUNTER 2024-02-24 17:13 | Emergency (ER) | payer OTHER ==
[2024-02-24 17:42] VITALS: BP 121/85; PULSE 85; RESP 17; TEMP 98.5; BMI 48.6
[2024-02-24] MEDS ORDERED: ACETAMINOPHEN 500 MG TABLET (FP) ONE (18:19)
[2024-02-24] MEDS ORDERED: predniSONE 20 MG TABLET (UD) ONE (18:20)
[2024-02-24] MEDS ORDERED: MECLIZINE HCL 25 MG TABLET (FP) ONE (18:20)
[2024-02-24] MEDS: ACETAMINOPHEN 500 MG TABLET (FP) PO ONE (18:22)
[2024-02-24] MEDS: MECLIZINE HCL 25 MG TABLET (FP) PO ONE (18:22)
[2024-02-24] MEDS: predniSONE 20 MG TABLET (UD) PO ONE (18:22)
== END 2024-02-24 18:44 | disposition home or self-care (01) ==
LOC: JER 17:13 → JERFT 17:13
DX: R42 Dizziness and giddiness (principal); R51.9 Headache, unspecified; H92.02 Otalgia, left ear
CPT/HCPCS: 99283-25